=== PATIENT | female | born 1995 | race Caucasian/White ===

== ENCOUNTER 2016-08-12 13:27 | Emergency (ER) | payer OTHER ==
--- NOTE | 2016-08-12 16:53 | ED ---
GI/ HPI - HPI Summary HPI Summary: Pt here w/ vaginal irritation x 1 month. Started as itching and irritation. Went to [facility] who dx'd her w/ yeast vaginitis - she was provided with diflucan PO x 1 which helped temporarily but then sx quickly returned. Called her PCP who called in rx of diflucan to take over the week ( multiple pills, ~5). She also tried monistat intravaginal cream but was on her period and cream was not retained well. She has had gonorrhea and chlamydia testing at [facility] 2 weeks ago - was told these are neg. She does admit to partially unprotected vaginal intercourse with her male partner - no condoms for beginning but uses latex condom (lubricated) shortly after initiating and before ejaculation - these are not a new products for her and has never had issues in the past. She denies use of anbs or steroids prior to sx starting but does admit she exercises regularly and wears yoga pants to gym as well as leggings for routine attire. She went without underwear last night for the first time and has been using a topical anti-itch cream w/ some relief. Denies ab/pelvic pain, dsyuria, flank pain, fever, chills, N/V/D. Drinks lots of water but also drinks lots of gatorade. Takes control and although periods are regular, she does comment this last one was a little longer/heavier than usual. Had her first pap last year - was normal. - History of Current Complaint Chief Complaint: EDUrogenitalProblems Time Seen by Provider: 08/12/16 15:32 Stated Complaint: YEAST INFECTION Hx Obtained From: Patient Pain Intensity: 5 - Allergy/Home Medications Allergies/Adverse Reactions: Allergies Allergy/AdvReac Type Severity Reaction Status Date / Time No Known Allergies Allergy Verified 08/13/16 08:11 PMH/Surg Hx/FS Hx/Imm Hx Previously Healthy: Yes Endocrine/Hematology History: Denies: Hx Anticoagulant Therapy, Hx Thyroid Disease, Autoimmune Disease Respiratory History: Reports: Hx Asthma - as a kid primarily, now sports induced Infectious Disease History: No Infectious Disease History: Denies: History Other Infectious Disease, Traveled Outside the [place] in Last 30 Days - Family History Known Family History: Positive: None - Social History Occupation: Student Lives: With Family - roommate Alcohol Use: Rare Hx Substance Use: No Substance Use Type: Reports: None Hx Tobacco Use: No Smoking Status (MU): Never Smoked Tobacco Review of Systems Negative: Fever, Chills Negative: Shortness Of Breath, Cough Gastrointestinal: Other - see HPI Positive: see HPI Musculoskeletal: Negative Negative: Rash Neurological: Negative Positive: Anxious - concerned about what could be causing sx All Other Systems Reviewed And Are Negative: Yes Physical Exam Triage Information Reviewed: Yes Vital Signs On Initial Exam: Initial Vitals Temp Pulse Resp BP Pulse Ox 99.1 F 94 20 141/84 100 08/12/16 13:29 08/12/16 13:29 08/12/16 13:29 08/12/16 13:29 08/12/16 13:29 Vital Signs Reviewed: Yes Appearance: Positive: Well-Appearing, No Pain Distress, Well-Nourished Skin: Positive: Warm, Dry - no rash Head/Face: Positive: Normal Head/Face Inspection Eyes: Positive: Normal, EOMI, Conjunctiva Clear - anicteric ENT: Positive: Hearing grossly normal, Pharynx normal - mucosa moist Respiratory/Lung Sounds: Positive: Breath Sounds Present Cardiovascular: Positive: Normal, RRR Abdomen Description: Positive: Nontender, No Organomegaly, Soft Bowel Sounds: Positive: Present Pelvic Exam: Positive: external exam normal - no erythema, edema or lesions over the labia or inner thighs, no cerv. motion tender, no masses, discharge - scant yellow/white mucousy d/c; no white curdy d/c, no frothy d/c, no watery d/ c - odor not detected. Negative: active bleeding, lesions Musculoskeletal: Positive: Normal, Strength/ROM Intact Neurological: Positive: Normal, Sensory/Motor Intact, Alert, Oriented to Person Place, Time Psychiatric: Positive: Normal - concerned and nervous but calm, cooperative Diagnostics - Vital Signs Vital Signs Temp Pulse Resp BP Pulse Ox 08/12/16 14:23 98.2 F 100 16 109/60 100 08/12/16 13:29 99.1 F 94 20 141/84 100 - Laboratory Lab Statement: Any lab studies that have been ordered have been reviewed, and results considered in the medical decision making process. GIGU Course/Dx - Course Course Of Treatment: Pt's c/o vaginitis x 1 month. Tried diflucan and monistat w /o relief. Pelvic exam is unremarkable for STD or PID today. Cx's taken. Advised pt to continue topical anti-itch cream until cx results return to avoid mistreatment. Education provided about prevention of infections, including STD and non-STD. Pt voices understanding and agrees w/ plan. Also aware of danger s/ sx of when to return to ED. - Diagnoses Provider Diagnoses: Vaginitis Discharge - Discharge Plan Condition: Stable Disposition: HOME Patient Education Materials: Vaginitis (ED) Referrals: MALLORIE Armas [Primary Care Provider] - Additional Instructions: The cause of your vaginitis is under further investigation. Cultures were taken and will be reviewed once they are completed (typically 48 hours after collection). It is encouraged that you continue yeast vaginitis regimen such wearing loose fitting cotton crotch undergarment (or no underwear at all), reduce/eliminate sugar from your diet, eat yogurt and other foods rich in live and active cultures, avoid foods high in yeast (ie. beer, bread, etc). You may continue use of topical anti-itch cream. Avoid use of tampons, sexual intercourse, use of toys, etc until condition is identified and treated. Avoid any scented or dyed vaginal products (ie. pads, tampons, douche washes, body wash, powders, pantyliners, bubble bath, hot tubs, etc). It is also encouraged that you use condoms all the time every time in an effort to reduce risk of bacterial vaginosis as well as STD's and . You may continue your oral control as usual but know that some medications may reduce the efficacy of oral control so do not rely on this as your sole source of protection from until you are free of other medication and have taken your oral control consistently for 1 month after recent and/or any other treatments.
[2016-08-12 17:00] LABS: Urine Bacteria 1+ (Absent); Urine Bilirubin Negative (Negative); Urine Glucose Negative (Negative); Urine Nitrite Negative (Negative)
[2016-08-12 17:54] VITALS: BP 142/82
== END 2016-08-12 17:52 | disposition home or self-care (01) ==
LOC: ED 13:27
DX: N76.0 Acute vaginitis (principal)
CPT/HCPCS: 81003; 81015; 87086; 87480; 87510; 87660; 99282

== ENCOUNTER 2016-08-13 08:09 | Emergency (ER) | payer OTHER ==
[2016-08-13] MEDS ORDERED: Aspirin Low Dose CHEW TAB* 81 MG PO ONE (08:57)
[2016-08-13] MEDS ORDERED: Ketorolac INJ* 30 MG/ML 1 ML VIAL IV PUSH ONE (08:57)
[2016-08-13 09:07] LABS: Hematocrit 41 % (35-47); Hemoglobin 13.9 g/dl (12.0-16.0); Mean Corpuscular HGB Conc 34 g/dl (31-36); Mean Corpuscular Hemoglobin 30 pg (27-31); Mean Corpuscular Volume 89 fL (80-97); Mean Platelet Volume 10 um3 (7.4-10.4); Red Blood Count 4.62 10^6/ul (4.0-5.4); Red Cell Distribution Width 13 % (10.5-15); White Blood Count 6.2 10^3/ul (3.5-10.8)
[2016-08-13 09:18] LABS: Albumin 4.2 g/dL (3.2-5.2); BUN/Creatinine Ratio 13.5 (8-20); Calcium 9.5 mg/dL (8.6-10.3); EGFR Non-African American 79.3 (>60); Globulin 2.9 g/dL (2-4); Potassium 3.8 mmol/L (3.5-5.0); Total Bilirubin 0.7 mg/dL (0.2-1.0); Total Protein 7.1 g/dL (6.4-8.9)
--- NOTE | 2016-08-13 09:31 | RAD ---
INDICATION: Chest pain COMPARISON: None TECHNIQUE: PA and lateral dual-energy views were obtained. FINDINGS: Bones/Soft Tissues: There are no acute bony findings. Cardiomediastinal: The cardiomediastinal silhouette is normal. Lungs: There are no infiltrates. There is no pneumothorax. Pleura: There are no pleural effusions. Other: None IMPRESSION: NORMAL CHEST.
[2016-08-13] MEDS ORDERED: Naproxen TAB* 250 MG PO ONE (09:51)
[2016-08-13 10:20] VITALS: BP 120/61
--- NOTE | 2016-08-25 21:06 | ED ---
José Miguel Salvador Alok, scribed for Perez Cuevas MD on 08/13/16 at 0902 . HPI Chest Pain - HPI Summary HPI Summary: 21 y/o female presents to the ED experiencing CP upon waking up at 0300. Pain registered at a 7/10 in severity at onset but was alleviated somewhat after taking 3 ibuprophen PO. CP accompanied by a tingling down the LUE, and pt also reports feeling vision blurriness and neck pain, but denies any dyspnea, fever, diaphoresis, chills, V/D, or myalgia. Pt currently on BCP with [facility] 1 and a half weeks ago, has not traveled recently, and had a cardio workout two days ago. - History of Current Complaint Chief Complaint: EDChestPainROMI Time Seen by Provider: 08/13/16 08:18 Hx Obtained From: Patient Onset/Duration: Started Hours Ago, Atraumatic, Still Present Timing: Constant, Lasting Hours Initial Severity: Moderate Current Severity: Mild Pain Intensity: 7 Character: Dyspnea at Rest Aggravating Factor(s): Position - worse when laying down Alleviating Factor(s): Position - better sitting up, OTC Meds - Ibuprophen Associated Signs and Symptoms: Positive: Chest Pain, Vision Changes - blurred vision, Tingling - RUE. Negative: Shortness of Breath, Fever, Chills, Diaphoresis, Vomiting, Other: - Myalgia - Allergy/Home Medications Allergies/Adverse Reactions: Allergies Allergy/AdvReac Type Severity Reaction Status Date / Time No Known Allergies Allergy Verified 08/13/16 08:11 PMH/Surg Hx/FS Hx/Imm Hx Endocrine/Hematology History: Denies: Hx Anticoagulant Therapy, Hx Thyroid Disease Respiratory History: Reports: Hx Asthma - as a kid primarily, now sports induced Infectious Disease History: No Infectious Disease History: Denies: History Other Infectious Disease, Traveled Outside the [place] in Last 30 Days - Family History Known Family History: Negative: Hypertension, Diabetes - Social History Alcohol Use: Rare Hx Substance Use: No Substance Use Type: Reports: None Hx Tobacco Use: No Smoking Status (MU): Never Smoked Tobacco Review of Systems Negative: Fever, Chills, Skin Diaphoresis Positive: Blurred Vision. Negative: Erythema Negative: Sore Throat Positive: Chest Pain Negative: Shortness Of Breath Negative: Abdominal Pain, Vomiting, Diarrhea, Nausea Negative: dysuria, hematuria Positive: Other - Neck pain. Negative: Myalgia Negative: Rash Neurological: Other - Negative: Dizziness Positive: Paresthesia - LUE tingling All Other Systems Reviewed And Are Negative: Yes Physical Exam - Summary Physical Exam Summary: Constitutional: Well-developed, Well-nourished, Alert. (-) Distressed Skin: Warm, Dry HENT: Normocephalic; Atraumatic Eyes: Conjunctiva normal Neck: Musculoskeletal ROM normal neck. (-) JVD, (-) Stridor, (-) Tracheal deviation Cardio: Rhythm regular, rate normal, Heart sounds normal; Intact distal pulses; The pedal pulses are 2+ and symmetric. Radial pulses are 2+ and symmetric. (-) Murmur Pulmonary/Chest wall: Effort normal. (-) Respiratory distress, (-) Wheezes, (-) Rales, Reproducible anterior chest pain Abd: Soft, (-) Tenderness, (-) Distension, (-) Guarding, (-) Rebound Musculoskeletal: (-) Edema. Left 4th Costochondrial tenderness reproducible by palpation Lymph: (-) Cervical adenopathy Neuro: Alert, Oriented x3 Vital Signs On Initial Exam: Initial Vitals Temp Pulse Resp BP Pulse Ox 98.3 F 83 16 142/52 100 08/13/16 08:11 08/13/16 08:11 08/13/16 08:11 08/13/16 08:11 08/13/16 08:11 Diagnostics - Vital Signs Vital Signs Temp Pulse Resp BP Pulse Ox 08/13/16 08:11 98.3 F 83 16 142/52 100 - Laboratory Result Diagrams: 08/13/16 08:30 08/13/16 08:30 Lab Statement: Any lab studies that have been ordered have been reviewed, and results considered in the medical decision making process. - Radiology CXR Xray Interpretation: No Acute Changes - Impression: Normal Chest Radiology Interpretation Completed By: Radiologist - EKG 08:10 Cardiac Rate: NL - 84 bpm EKG Rhythm: Sinus Rhythm ST Segment: Normal Chest Pain Course/Dx - Chest Pain Differential Diagnosis/HQI/PQRI: Other: - costochondritis, radiculopathy, rib strain - Diagnoses Provider Diagnoses: Musculoskeletal chest pain Discharge - Discharge Plan Condition: Stable Disposition: HOME Patient Education Materials: Chest Wall Pain (ED) Referrals: [facility] MALLORIE [place] [Primary Care Provider] - 2 Days Additional Instructions: Return to the emergency department for changing or worsening symptoms The documentation as recorded by the José Miguel goodwin Alok accurately reflects the service I personally performed and the decisions made by me, Perez Cuevas MD.
== END 2016-08-13 10:19 | disposition home or self-care (01) ==
LOC: ED 08:09
DX: R07.9 Chest pain, unspecified (principal)
CPT/HCPCS: 36415; 71020; 80053; 84484; 85025; 85379; 93005; 96374; 96375; 99283; A9270-GY; J1885